=== PATIENT | female | born 1990 | race American Indian/Alaskan Native ===

== ENCOUNTER 2018-03-11 19:14 | Emergency (ER) | payer SELFPAY ==
[2018-03-11 19:36] VITALS: BP 125/78
[2018-03-11 20:31] LABS: Bacteria,Urine 2+ /HPF (Negative); Bilirubin,Urine NEG (Negative); Blood,Urine MOD (Negative); Color,Urine Yellow (Yellow); Mucus,Urine 3+ /HPF
[2018-03-11 20:39] LABS: WBC,Urine > 182.0 /HPF (0.0-6.0)
[2018-03-11 20:40] LABS: HCG Qualitative,Urine Negative (Negative)
[2018-03-11] MEDS ORDERED: DIFLUCAN PO ONE (23:42)
[2018-03-11] MEDS ORDERED: MACROBID PO ONE (23:42)
--- NOTE | 2018-03-12 00:07 | Emergency Department Report ---
HPI - General Chief Complaint: Urogenital-Female Time Seen by Provider: 03/11/18 23:42 - HPI HPI: 27-year-old female presents to the emergency department with the complaint of some burning with urination for the past 4 days as well as some more recent vaginal itching and thick white discharge. She says I think I have a urinary tract infection and a yeast infection. She just completed taking Flagyl a few days ago secondary to the diagnosis of bacterial vaginosis. She denies any significant abdominal pain or any fever. She has a primary care physician but cannot currently remember their name. She otherwise has not taken anything for her symptoms prior to presentation. ED Past Medical Hx - Past Medical History Previous Medical History?: No - Surgical History Past Surgical History?: No - Social History Smoking Status: Never Smoker Substance Use Type: None - Medications Home Medications: Home Medications Medication Instructions Recorded Confirmed Last Taken Type Fluconazole [Diflucan] 150 mg PO ONCE #1 tablet 03/12/18 Unknown Rx Nitrofurantoin Monohyd/M-Cryst 100 mg PO BID #14 capsule 03/12/18 Unknown Rx [Macrobid 100 mg Capsule] ED Review of Systems ROS: Stated complaint: VAGINAL ITCHING,PAIN WHEN URINATING Other details as noted in HPI Comment: All other systems reviewed and negative Constitutional: denies: chills, fever Eyes: denies: eye pain, eye discharge, vision change ENT: denies: ear pain, throat pain Respiratory: denies: cough, shortness of breath, wheezing Cardiovascular: denies: chest pain, palpitations Gastrointestinal: denies: abdominal pain, nausea, diarrhea Genitourinary: dysuria, discharge Musculoskeletal: denies: back pain, joint swelling, arthralgia Skin: denies: rash, lesions Neurological: denies: headache, weakness, paresthesias Physical Exam - Physical Exam Vital Signs: Vital Signs 03/11/18 19:29 Temperature 98.9 F Pulse Rate 81 Respiratory 16 Rate Blood Pressure 125/78 O2 Sat by Pulse 99 Oximetry Physical Exam: GENERAL: The patient is well-developed well-nourished. HENT: Normocephalic. Atraumatic. Patient has moist mucous membranes. EYES: Extraocular motions are intact. NECK: Supple. Trachea is midline. CHEST/LUNGS: Clear to auscultation. There is no respiratory distress noted. HEART/CARDIOVASCULAR: Regular. There is no tachycardia. There is no murmur. ABDOMEN: There is no abdominal distention. SKIN: Skin is warm and dry. NEURO: The patient is awake, alert, and oriented. The patient is cooperative. The patient has normal speech and gait. MUSCULOSKELETAL: There is no tenderness or deformity. There is no evidence of acute injury. ED Course Vital Signs 03/11/18 19:29 Temperature 98.9 F Pulse Rate 81 Respiratory 16 Rate Blood Pressure 125/78 O2 Sat by Pulse 99 Oximetry ED Medical Decision Making - Medical Decision Making Patient had concern for a yeast infection and urinary tract infection. Urinalysis definitely shows a urinary tract infection with greater than 180 white blood cells. Patient is not . She had a urine gonorrhea and chlamydia sent that will be pending for the next 2 or 3 days. She will be started on Macrobid and Diflucan for the UTI and yeast infection respectively. She is encouraged to follow up with her primary care physician and return to the ER with any worsening of her symptoms or any acute distress. - Differential Diagnosis UTI, Yeast infection, Critical Care Time: No Critical care attestation.: If time is entered above; I have spent that time in minutes in the direct care of this critically ill patient, excluding procedure time. ED Disposition Clinical Impression: Yeast infection UTI (urinary tract infection) Qualifiers: Urinary tract infection type: acute cystitis Hematuria presence: without hematuria Qualified Code(s): N30.00 - Acute cystitis without hematuria Disposition: - TO HOME OR SELFCARE Is pt being admited?: No Condition: Stable Instructions: Urinary Tract Infection in Women (ED), Vulvovaginal Candidiasis ( ED) Additional Instructions: Please take the antibiotics and Diflucan as prescribed. Return to the emergency Department with any worsening of your symptoms or any acute distress. Follow-up with your primary care physician. Prescriptions: Fluconazole [Diflucan] 150 mg PO ONCE #1 tablet Nitrofurantoin Monohyd/M-Cryst [Macrobid 100 mg Capsule] 100 mg PO BID #14 capsule Referrals: PRIMARY CARE [Primary Care Provider] - [facility] Time of Disposition: 00:04
== END 2018-03-12 00:25 | disposition home or self-care (01) ==
LOC: ED 19:14
DX: N30.00 Acute cystitis without hematuria (principal); B37.3 Candidiasis of vulva and vagina
CPT/HCPCS: 81001; 81025; 87591; 99283